=== PATIENT | female | born 1990 | race Caucasian/White ===

== ENCOUNTER → 2018-11-07 14:13 | Outpatient (CLI) | payer MEDICAID, SELFPAY ==
[2014-04-25 01:30] VITALS: BMI 27.4
[2018-11-13 15:25] LABS: HPV Reflexed? NOT INDICATED
== END ==
PROVIDERS: Visit Provider Obstetrics & Gynecology
DX: Z12.4 Encounter for screening for malignant neoplasm of cervix (principal)
CPT/HCPCS: 88175; G0145

== ENCOUNTER → 2019-04-04 | Outpatient (CLI) | payer MEDICAID, SELFPAY ==
[2014-04-25 01:30] VITALS: BMI 27.4
[2019-04-10 11:16] LABS: HPV APTIMA, High Risk Positive (Negative)
== END | disposition home or self-care (01) ==
LOC: LABSPEC 13:20
PROVIDERS: Visit Provider Obstetrics & Gynecology
DX: R87.612 Low grade squamous intraepithelial lesion on cytologic smear of cervix (LGSIL) (principal)
CPT/HCPCS: 87624; 88175; G0145

== ENCOUNTER → 2019-05-08 16:23 | Outpatient (CLI) | payer MEDICAID, SELFPAY ==
[2014-04-25 01:30] VITALS: BMI 27.4
--- NOTE | 2019-05-08 | IMM_PTH ---
PATIENT: DOMENIC CONTRERAS LOC: [facility] U#:[id number] AGE/SX: 34/F ROOM: RE05/08/[address]: Dr. Jo Ann Chang MD : 1990 BED: DIS: SPEC #: [id number] RECD: 05/10/19 12:42 STATUS: PHILIP GENE #: [id number] JEROMY: 05/08/19 00:[address]: Jo Ann Chaney DEPT: IMMUNOHISTOCHEMISTRY RECD BY: Ruby Flores Tissues: A - Uterine cervix, NOS B - Endocervical Procedures: p16 (initial) KI-67 (add) PHYSICIAN & [place] [id number] SPECIMEN INFORMATION: Tissue Source: A - Cervix, 6 o'clock, biopsy, B - ECC Clinical Info: LGSIL, ASCUS Specimen Number: [id number] A & B CPT code: 61970 x2, 74979 x2 METHODOLOGY: Deparaffinized sections of prefer/formalin-fixed tissue or PAP/DQ stained slides are incubated with monoclonal/polyclonal antibodies/oligonucleotide probes. Localization is made via biotin free immunoperoxidase method. Appropriate controls are performed and reacted as expected. Results on target cell population are indicated in the following table: RESULTS: ANTIBODY / CLONE RESULT Block A P16 (E6H4) negative Ki-67 (30-9) negative Block B P16 (E6H4) negative Ki-67 (30-9) negative These tests were developed and their performance characteristics determined by [facility]. They may not have been cleared or approved by the [place]. Food and Drug Administration. The FDA has determined that such clearance or approval is not necessary. INTERPRETATION: A. Cervix, 6 o'clock biopsy: Focal HPV change suspected. B. ECC: No evidence of dysplasia. AM:anna marie 05/13/19
--- NOTE | 2019-05-08 15:05 | CER_PTH ---
PATIENT: DOMENIC CONTRERAS [id number] AGE/SX: 34/F ROOM: RE05/08/[address]: Dr. Jo Ann Chang MD : 1990 BED: DIS: SPEC #: [id number] RECD: 05/08/19 16:20 STATUS: PHILIP GENE #: [id number] JEROMY: 05/08/19 15:[address]: Jo Ann Chaney DEPT: SURGICAL PATHOLOGY RECD BY: Valerio Almazan Tissues: A - Uterine cervix, NOS B - Endocervical Procedures: Surgery Specimen Level IV HEADER OPERATION: Colposcopy PRE-OP DIAGNOSIS: LGSIL, ASCUS, R87.612, R87.810 TISSUE SUBMITTED: A - 6 o'clock biopsy, B - ECC MICROSCOPIC DIAGNOSIS A. Cervix at 6 o'clock, biopsy: Focal HPV change suspected. Squamous metaplasia and chronic inflammation. See comment. B. Endocervix, curettings: Rare strips of benign superficial endocervix. Rare detached squamous epithelial cells suspicious for HPV change. See comment. AM:anna marie 05/10/19 COMMENT A & B. Results from immunohistochemistry ([id number]) for surrogate HPV marker (p16) will be reported separately. Case has been reviewed in consultation with Dr. Pascal who concurs with the above diagnosis. IDC:[email or web address] MICROSCOPIC DESCRIPTION Slides are reviewed. GROSS DESCRIPTION A - Received in fixative is one container labeled with the patient's name and designated 6 o'clock. The specimen consists of one irregular fragment of light hernandes soft tissue that measures 0.4 x 0.3 x 0.1 cm. The specimen is totally submitted in one cassette. B - Received in fixative is one container labeled with the patient's name and designated ECC. The specimen consists of a scant amount of soft tissue. The specimen is totally submitted for cell block preparation. / SANDEEP:anna marie 05/09/19 TC:3 CPT: 99684 x2
== END ==
PROVIDERS: Referring Provider Obstetrics & Gynecology; Visit Provider Obstetrics & Gynecology
DX: N87.9 Dysplasia of cervix uteri, unspecified (principal)
CPT/HCPCS: 88305; 88341; 88342

== ENCOUNTER → 2019-06-21 10:01 | Outpatient (CLI) | payer MEDICAID, SELFPAY ==
[2014-04-25 01:30] VITALS: BMI 27.4
[2019-06-21 12:30] LABS: Hematocrit 39.8 % (37-47); Hemoglobin 12.8 g/dL (12.0-15.0); Mean Corp Hgb Conc 32.2 g/dL (32-36); Mean Corpuscular Volume 90.2 fL (81-99); Platelet Count 255 K/mm3 (150-450); RBC Distribution Width CV 12.1 % (11.6-14.6); RBC Distribution Width SD 40.2 fl (35.1-43.9); Red Blood Count 4.41 M/mm3 (4.2-5.4); White Blood Count 5.5 K/mm3 (4.4-11.0)
[2019-06-21 12:58] LABS: ALB/GLOB Ratio 0.8 RATIO (0.9-2.4); AST(SGOT) 15 U/L (15-37); Alanine Aminotransfer ALT/SGPT 18 U/L (13-56); Albumin, Serum 3.3 g/dL (3.2-5.0); Alkaline Phosphatase 51 U/L (45-117); Anion Gap 5 (5-15); BUN 13 mg/dL (7-18); BUN/Creat Ratio 16.6 RATIO (10-20); Calcium,Total 8.6 mg/dL (8.5-10.1); Chloride 107 mmol/L (98-107); Creatinine, Serum 0.78 mg/dL (0.55-1.02); EST Glomerular Filtration Rate 92 mL/min (>60); Est Glom Filt Rate - Afr Amer 111 mL/min (>60); Ferritin 36 ng/mL (8-252); Glucose 85 mg/dL (74-106); Magnesium 1.9 mg/dL (1.6-2.6); Potassium 4.1 mmol/L (3.5-5.1); Protein, Total 7.3 g/dL (6.4-8.2); Sodium Level 139 mmol/L (136-145); Thyroid Stim Hormone (TSH) 0.82 uIU/mL (0.358-3.74)
== END ==
PROVIDERS: Visit Provider Family Medicine
DX: R00.2 Palpitations (principal)
CPT/HCPCS: 36415; 80053; 82728; 83735; 84443; 85027

== ENCOUNTER → 2019-08-16 14:25 | Outpatient (CLI) | payer MEDICAID, SELFPAY ==
[2014-04-25 01:30] VITALS: BMI 27.4
[2019-08-16 17:44] LABS: Free T3 2.3 pg/mL (2.18-3.98); T4 Free Direct 0.88 ng/dL (0.76-1.46); Thyroid Stim Hormone (TSH) 0.86 uIU/mL (0.358-3.74)
== END ==
PROVIDERS: Visit Provider Family Medicine
DX: R00.2 Palpitations (principal)
CPT/HCPCS: 36415; 84439; 84443; 84481

== ENCOUNTER → 2019-11-06 | Outpatient (CLI) | payer MEDICAID, SELFPAY ==
[2019-11-06 09:57] VITALS: BMI 22.8
[2019-11-13 20:07] LABS: HPV Genotype 16, Aptima Negative (Negative)
[2019-11-13 20:34] LABS: HPV APTIMA, High Risk Positive (Negative); HPV Genotype 18,45 Aptima Negative (Negative)
== END | disposition home or self-care (01) ==
LOC: LABSPEC 14:11
PROVIDERS: PCP Family Medicine; Referring Provider Obstetrics & Gynecology; Visit Provider Obstetrics & Gynecology
DX: Z12.4 Encounter for screening for malignant neoplasm of cervix (principal)
CPT/HCPCS: 87624; 88175; G0145

== ENCOUNTER → 2020-11-09 | Outpatient (CLI) | payer MEDICAID, SELFPAY ==
[2020-11-09 10:32] VITALS: BMI 23.6
[2020-11-14 03:07] LABS: HPV Genotype 16, Aptima Negative (Negative)
[2020-11-14 12:03] LABS: HPV APTIMA, High Risk Positive (Negative); HPV Genotype 18,45 Aptima Negative (Negative)
== END | disposition home or self-care (01) ==
PROVIDERS: PCP Family Medicine; Referring Provider Obstetrics & Gynecology; Visit Provider Obstetrics & Gynecology
DX: Z12.4 Encounter for screening for malignant neoplasm of cervix (principal)
CPT/HCPCS: 87624; 88175; G0145

== ENCOUNTER 2021-11-11 08:31 | Outpatient (CLI) | payer MEDICAID, SELFPAY ==
[2021-11-18 00:07] LABS: HPV Genotype 16, Aptima Negative (Negative)
[2021-11-18 18:36] LABS: HPV APTIMA, High Risk Positive (Negative); HPV Genotype 18,45 Aptima Negative (Negative)
== END 2021-11-11 23:59 | disposition home or self-care (01) ==
LOC: LABSPEC 11-12 08:31
PROVIDERS: PCP Family Medicine; Visit Provider Obstetrics & Gynecology
DX: Z01.419 Encounter for gynecological examination (general) (routine) without abnormal findings (principal)
CPT/HCPCS: 87624; 88175; G0145

== ENCOUNTER → 2023-01-03 | Outpatient (CLI) | payer MEDICAID, SELFPAY ==
[2023-01-03 19:01] LABS: Thyroid Stim Hormone (TSH) 0.86 uIU/mL (0.358-3.74)
[2023-01-09 17:07] LABS: Beef <0.10 kU/L (Class 0); Chocolate <0.10 kU/L (Class 0); Corn <0.10 kU/L (Class 0); Egg, Whole 0.36 kU/L (Class I); Milk (Cow) 0.21 kU/L (Class 0/I); Peanut 0.34 kU/L (Class I); Pork <0.10 kU/L (Class 0); Soybean <0.10 kU/L (Class 0); Wheat 0.19 kU/L (Class 0/I)
== END | disposition home or self-care (01) ==
LOC: MTLAB 15:19
PROVIDERS: PCP Family Medicine; Referring Provider Nurse Practitioner Family; Visit Provider Nurse Practitioner Family
DX: R14.0 Abdominal distension (gaseous) (principal)
CPT/HCPCS: 36415; 84443; 86003; 86005

== ENCOUNTER → 2024-06-18 | Outpatient (CLI) | payer BC, SELFPAY ==
[2024-06-18 12:25] LABS: Hematocrit 40.9 % (37-47); Hemoglobin 13.4 g/dL (12.0-15.0); Mean Corp Hgb Conc 32.8 g/dL (32-36); Mean Corpuscular Hgb 29.8 pg (27.0-32.0); Mean Corpuscular Volume 91.1 fL (81-99); Mean Platelet Vol. 10.9 fl (6.2-12.0); Platelet Count 200 K/mm3 (150-450); RBC Distribution Width CV 11.9 % (11.6-14.6); RBC Distribution Width SD 39.5 fl (35.1-43.9); Red Blood Count 4.49 M/mm3 (4.2-5.4)
[2024-06-18 13:04] LABS: ALB/GLOB Ratio 0.9 RATIO (0.9-2.4); AST(SGOT) 12 U/L (15-37); Alanine Aminotransfer ALT/SGPT 17 U/L (13-56); Albumin, Serum 3.5 g/dL (3.2-5.0); Alkaline Phosphatase 65 U/L (45-117); Anion Gap 7 (5-15); BUN 17 mg/dL (7-18); BUN/Creat Ratio 22.1 RATIO (10-20); Calcium,Total 9.1 mg/dL (8.5-10.1); Chloride 106 mmol/L (98-107); Creatinine, Serum 0.77 mg/dL (0.55-1.02); EST Glomerular Filtration Rate 91 mL/min (>60); Est Glom Filt Rate - Afr Amer 110 mL/min (>60); Globulin 3.7 g/dL (2.2-4.2); Glucose 83 mg/dL (74-106); Lipase 42 U/L (13-75); Potassium 3.9 mmol/L (3.5-5.1); Protein, Total 7.2 g/dL (6.4-8.2); Sodium Level 138 mmol/L (136-145)
== END | disposition home or self-care (01) ==
LOC: MFPLAB 09:17
PROVIDERS: PCP Family Medicine; Referring Provider Family Medicine; Visit Provider Family Medicine
DX: R14.0 Abdominal distension (gaseous) (principal); Z13.1 Encounter for screening for diabetes mellitus; Z13.220 Encounter for screening for lipoid disorders
CPT/HCPCS: 36415; 80053; 82533; 83690; 85027

== ENCOUNTER → 2024-07-10 | Outpatient (CLI) | payer BC, SELFPAY ==
[2024-07-22 19:07] LABS: HPV APTIMA, High Risk Positive (Negative); HPV Genotype 16, Aptima Negative (Negative); HPV Genotype 18,45 Aptima Negative (Negative)
== END | disposition home or self-care (01) ==
LOC: LABSPEC 13:37
PROVIDERS: PCP Family Medicine; Referring Provider Nurse Practitioner Women's Health; Visit Provider Nurse Practitioner Women's Health
DX: Z12.4 Encounter for screening for malignant neoplasm of cervix (principal); B97.7 Papillomavirus as the cause of diseases classified elsewhere
CPT/HCPCS: 87624; 88175; G0145

== ENCOUNTER → 2025-07-11 | Outpatient (CLI) | payer SELFPAY ==
[2025-07-16 20:08] LABS: HPV APTIMA, High Risk Positive (Negative); HPV Genotype 16, Aptima Negative (Negative); HPV Genotype 18,45 Aptima Negative (Negative)
== END | disposition home or self-care (01) ==
LOC: LABSPEC 11:55
PROVIDERS: PCP Family Medicine; Visit Provider Obstetrics & Gynecology
DX: Z12.4 Encounter for screening for malignant neoplasm of cervix (principal); B97.7 Papillomavirus as the cause of diseases classified elsewhere
CPT/HCPCS: 87624; 88175; G0145